=== PATIENT | female | born 2000 | race Caucasian/White ===

== ENCOUNTER 2019-11-12 17:01 | Outpatient (REF) | payer BC, SELFPAY ==
--- NOTE | 2019-11-12 10:30 | PAPFT_PTH ---
PATIENT: Hayley Devine LOC: [facility]N U#:[id number] AGE/SX: 19/F ROOM: RE11/12/[address]: Margaret Hayden : 2000 BED: DIS: 11/12/2019 SPEC #: [id number] RECD: 11/13/19 12:40 STATUS: MALU REQ #: [id number] EDWIN: 11/12/19 10:[address]: Margaret Hayden DEPT: [facility] RECD BY: Yasmin Ramírez ENTERED: 11/13/19 12:41 SP TYPE: PAPFT OTHR DR: Marivel Young Tissues: 1 - CX/ENDOCX FOR PAP SMEARS Procedures: PAP THIN PREP/UVM Screening Comments: [id number]
== END 2019-11-12 17:21 ==
LOC: NCHCN 17:01
PROVIDERS: PCP Nurse Practitioner Family; Visit Provider Family Medicine
DX: Z00.00 Encounter for general adult medical examination without abnormal findings (principal); Z12.4 Encounter for screening for malignant neoplasm of cervix; Z11.51 Encounter for screening for human papillomavirus (HPV)
CPT/HCPCS: 88142

== ENCOUNTER 2020-01-15 18:38 | Emergency (ER) | payer BC, SELFPAY ==
[2020-01-15 18:42] VITALS: BP 101/48; PULSE 79; RESP 14; TEMP 37; O2SAT 98
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
[2020-01-15] MEDS: Bacitracin 1 PACKET (19:27)
== END 2020-01-15 19:55 | disposition home or self-care (01) ==
PROVIDERS: Emergency Provider Physician Assistant; PCP Family Medicine
DX: S60.512A Abrasion of left hand, initial encounter (principal); S90.512A Abrasion, left ankle, initial encounter; S70.312A Abrasion, left thigh, initial encounter; V18.0XXA Pedal cycle driver injured in noncollision transport accident in nontraffic accident, initial encounter; Y93.55 Activity, bike riding
CPT/HCPCS: 90471; 99284

== ENCOUNTER 2020-11-19 18:59 | Outpatient (REF) | payer BC, SELFPAY ==
[2020-11-19 19:02] LABS: MCH 30.8 pg (27.0-33.0); MCHC 32.6 % (32.0-36.0); MCV 94.5 fL (80-95); MPV 11.1 fL (8.0-11.0); Platelet Count 211 10^3/uL (130-400); RBC 4.55 10^6/uL (3.93-5.22); RDW 12.3 % (11.7-14.6); RDW-SD 43.1 fL; WBC 7.18 10^3/uL (4.4-10.8)
[2020-11-19 19:22] LABS: Ferritin 163 ng/mL (8-252)
[2020-11-22 04:55] LABS: Vitamin D 25 Total 48.8 ng/mL (30-100)
[2020-11-23 11:32] LABS: IgA 74 mg/dL (85-499); Interpretation (See Note); Tissue Transglutaminase IgA <1.2 U/mL (<4.0)
[2020-11-26 21:43] LABS: Gliadin (Deamidated) Ab, IgG 11.2 U
== END 2020-11-19 19:00 | disposition home or self-care (01) ==
LOC: NCHCN 18:59
PROVIDERS: PCP Family Medicine; Visit Provider Family Medicine
DX: K90.0 Celiac disease (principal)
CPT/HCPCS: 82306; 82784; 83516; 85027; 82728

== ENCOUNTER 2022-09-21 11:02 | Outpatient (REF) | payer BC, SELFPAY ==
--- NOTE | 2022-09-21 10:00 | PAPFT_PTH ---
PATIENT: Hayley Devine LOC: [facility]N #:[id number] AGE/SX: 21/ ROOM: RE09/21/[address]: Margaret Hayden : 2000 BED: DIS: 09/21/2022 SPEC #: [id number] RECD: 09/21/22 18:31 STATUS: MALU REQ #: [id number] EDWIN: 09/21/22 10:[address]: Margaret Hayden DEPT: [facility] Cytology RECD BY: Yasmin Ramírez ENTERED: 09/21/22 18:31 SP TYPE: PAPFT OTHR DR: Christian Keller Tissues: 1 - CX/ENDOCX FOR PAP SMEARS Procedures: PAP THIN PREP/[facility] Screening Comments: [id number] (CHLAMYDIA/GC)
[2022-09-22 12:33] LABS: Chlamydia Result Negative (Negative); GC Result Negative (Negative)
== END 2022-09-21 11:03 | disposition home or self-care (01) ==
LOC: NCHCN 11:02
PROVIDERS: PCP Family Medicine; Visit Provider Family Medicine
DX: Z11.3 Encounter for screening for infections with a predominantly sexual mode of transmission (principal); Z12.4 Encounter for screening for malignant neoplasm of cervix; Z00.00 Encounter for general adult medical examination without abnormal findings
CPT/HCPCS: 87491; 87591; 88142

== ENCOUNTER 2022-12-13 14:34 | Outpatient (REF) | payer BC, SELFPAY ==
[2022-12-13 14:36] LABS: Source Nasal/Nares
[2022-12-13 16:23] LABS: COVID-19 PCR Negative (Negative)
== END 2022-12-13 14:35 | disposition home or self-care (01) ==
LOC: LBN 14:34
PROVIDERS: PCP Family Medicine; Visit Provider Physician Assistant Medical
DX: J02.9 Acute pharyngitis, unspecified (principal); Z20.822 Contact with and (suspected) exposure to COVID-19
CPT/HCPCS: 87635; 87070

== ENCOUNTER 2023-06-19 18:58 | Outpatient (REF) | payer BC, SELFPAY | END 2023-06-19 18:59 | disposition home or self-care (01) | LOC: NCHCN 18:58 | PROVIDERS: PCP Family Medicine; Visit Provider Physician Assistant | DX: J02.9 Acute pharyngitis, unspecified (principal) | CPT/HCPCS: 87070 ==

== ENCOUNTER 2023-06-20 16:47 | Outpatient (REF) | payer BC, SELFPAY ==
[2023-06-20 14:35] LABS: Source Nasal/Nares
[2023-06-20 15:42] LABS: COVID-19 PCR POSITIVE (Negative)
== END 2023-06-20 16:48 | disposition home or self-care (01) ==
LOC: LBN 16:47
PROVIDERS: PCP Family Medicine; Visit Provider Physician Assistant Medical
DX: J02.9 Acute pharyngitis, unspecified (principal); Z20.822 Contact with and (suspected) exposure to COVID-19
CPT/HCPCS: 87635

== ENCOUNTER 2023-06-22 09:54 | Outpatient (CLI) | payer BC, SELFPAY ==
[2023-06-22 10:32] LABS: ALT 32 U/L (14-59); AST 16 U/L (15-37); Albumin 3.7 g/dL (3.4-5.0); Alkaline Phosphatase 51 U/L (46-116); Anion Gap 7.5 mmol/L (3-11); BUN 10 mg/dL (7-18); Bilirubin, Total 0.5 mg/dL (0.2-1.0); CO2 27.5 mmol/L (21.0-32.0); CREATININE 0.8 mg/dL (0.55-1.02); Calcium 8.8 mg/dL (8.5-10.1); Chloride 105 mmol/L (98-107); Estimated GFR 105.45 (mL/min/1.73m2); Glucose 90 mg/dL (74-106); Potassium 3.9 mmol/L (3.5-5.1); Sodium 140 mmol/L (136-145); Total Protein 6.9 g/dL (6.4-8.2)
== END 2023-06-22 09:55 | disposition home or self-care (01) ==
LOC: LBO 09:54
PROVIDERS: PCP Family Medicine; Visit Provider Physician Assistant Medical
DX: U07.1 COVID-19 (principal)
CPT/HCPCS: 36415; 80053

== ENCOUNTER 2023-10-05 10:42 | Outpatient (REF) | payer BC, SELFPAY ==
[2023-10-05 15:31] LABS: HCT 44.6 % (36.0-46.0); HGB 14.5 g/dL (11.2-15.7); MCH 31.1 pg (27.0-33.0); MCHC 32.5 % (32.0-36.0); MCV 96 fL (80-95); MPV 11.3 fL (8.0-11.0); Platelet Count 176 10^3/uL (130-400); RBC 4.66 10^6/uL (3.93-5.22); RDW 12.4 % (11.7-14.6); RDW-SD 43.3 fL; WBC 4.94 10^3/uL (4.4-10.8)
[2023-10-05 16:04] LABS: ALT 38 U/L (14-59); AST 19 U/L (15-37); Albumin 4.1 g/dL (3.4-5.0); Alkaline Phosphatase 63 U/L (46-116); Anion Gap 9.3 mmol/L (3-11); BUN 14 mg/dL (7-18); Bilirubin, Total 0.7 mg/dL (0.2-1.0); CO2 27.7 mmol/L (21.0-32.0); CREATININE 0.8 mg/dL (0.55-1.02); Calcium 8.7 mg/dL (8.5-10.1); Chloride 107 mmol/L (98-107); Estimated GFR 105.45 (mL/min/1.73m2); Ferritin 143 ng/mL (8-252); Glucose 80 mg/dL (74-106); Potassium 4.3 mmol/L (3.5-5.1); Sodium 144 mmol/L (136-145); TSH (W/Ref FT4) 3.59 uIU/mL (0.36-3.74)
[2023-10-05 16:08] LABS: Vitamin D 25 Total 36.6 ng/mL (30-100)
[2023-10-06 00:05] LABS: Hepatitis C Ab w Rflx HCV PCR Negative (Negative)
[2023-10-06 00:19] LABS: HIV-1/2 Ag & Ab Screen Negative (Negative)
[2023-10-08 22:04] LABS: Gliadin (Deamidated) Ab, IgG <10.0 U
== END 2023-10-05 10:43 | disposition home or self-care (01) ==
LOC: NCHCN 10:42
PROVIDERS: PCP Family Medicine; Visit Provider Family Medicine
DX: Z00.00 Encounter for general adult medical examination without abnormal findings (principal); F41.8 Other specified anxiety disorders; D80.2 Selective deficiency of immunoglobulin A [IgA]; K90.0 Celiac disease; Z11.4 Encounter for screening for human immunodeficiency virus [HIV]; Z11.59 Encounter for screening for other viral diseases
CPT/HCPCS: 80053; 82306; 83516; 85027; 86803; 87389; 82728; 84443

== ENCOUNTER 2024-02-20 12:52 | Outpatient (CLI) | payer OTHER, BC, SELFPAY ==
--- NOTE | 2024-02-20 12:07 | DI.RAD_ITS ---
Exam(s) XR SHOULDER RT COMPLETE 2+V EXAM: XR SHOULDER RT COMPLETE 2+V CLINICAL HISTORY: Pain in rt shoulder, M25.511. TECHNIQUE: 2D digital imaging was performed. COMPARISON: No exams were available for comparison FINDINGS: Five views. There is no evidence fracture nor dislocation nor abnormal soft tissue calcifications. The subacromi al space appears unremarkable. Bone density is normal. No osseous lesions nor degenerative changes in the glenohumeral and AC joints and the ipsilateral clavicle appears unremarkable. The coracoid pr ocess is intact. The appearance of the anterior aspect of the acromium on the axial view implies possible subtle eleme nt of os acromiale versus subtle fracture at this level. There is no widening nor offset of the AC j oint. IMPRESSION: Subtle acromial finding seen only on the axial view, as described above. DATA REPOSITORY: RADIATION DOSE DELIVERED:
== END 2024-02-20 13:12 ==
LOC: DI 12:54
PROVIDERS: PCP Family Medicine; Visit Provider Physician Assistant Medical
DX: M25.511 Pain in right shoulder (principal)
CPT/HCPCS: 73030

== ENCOUNTER 2024-03-20 02:17 | Outpatient (CLI) | payer OTHER, SELFPAY ==
--- NOTE | 2024-03-20 | DI.MRI_ITS ---
Exam(s) MR UPPER JOINT RT WO EXAM: MR UPPER JOINT RT WO CLINICAL HISTORY: PAIN RT SHOULDER JOINT, M25.511. TECHNIQUE: Multiplanar multisequence MRI was performed. COMPARISON: CR XR SHOULDER RT COMPLETE 2+V from 02/20/2024 FINDINGS: BONES: There is no fracture or contusion pattern. Small subchondral cysts are seen in the humeral hea d. There is mild downward tilt of the acromion. There is mild impingement upon the superior rotator cuff muscle/tendon junction. JOINTS: The acromioclavicular joint is normal. The glenohumeral joint is normal. TENDONS: Supraspinatus: Unremarkable. Infraspinatus: Unremarkable. Subscapularis: Unremarkable. Teres Minor: Unremarkable. Biceps and [place]: Unremarkable. MUSCLES: Unremarkable. GLENOID LABRUM: Unremarkable on this noncontrast examination. SOFT TISSUES: Unremarkable. LIGAMENTS: Unremarkable. OTHER: There is a small amount of fluid seen in the subacromial bursa. IMPRESSION: 1. No evidence of a rotator cuff or labral defect on this noncontrast examination. 2. Downward tilt laterally of the acromion with mild impingement on the superior aspect of the rotato r cuff musculotendinous junction. 3. Small amount of fluid in the subacromial bursa which can be seen with bursitis. DATA REPOSITORY:
== END 2024-03-20 02:37 ==
PROVIDERS: PCP Family Medicine; Visit Provider Physician Assistant Medical
DX: M25.511 Pain in right shoulder (principal)
CPT/HCPCS: 73221